=== PATIENT | female | born 1960 | race Caucasian/White ===

== ENCOUNTER 2020-07-12 16:30 | Outpatient (REF) | payer OTHER, SELFPAY ==
--- NOTE | 2020-07-12 16:38 | XR_ITS ---
EXAMINATION: XR HAND, LEFT CLINICAL INFORMATION: Finger pain COMPARISON: None TECHNIQUE: PA, lateral, and oblique views of the left hand. FINDINGS: Moderate degenerative changes are present at the base of the thumb with sclerosis and osteophyte formation. Degenerative changes are also present at the DIP joint of the second digit with capsular calcification and subchondral cyst formation . Otherwise, the bones and soft tissues are normal. No fracture. Alignment is anatomic. Joint spaces are maintained. No other erosions or soft tissue calcifications. XR/XR hand LT 2V IMPRESSION: Degenerative changes at the base of the thumb and at the second DIP joint. No fractures.
== END 2020-07-12 16:31 | disposition home or self-care (01) ==
LOC: HO.XRAY 16:30
PROVIDERS: PCP Internal Medicine; Visit Provider Physician Assistant
DX: M79.645 Pain in left finger(s) (principal)
CPT/HCPCS: 73120; 87086

== ENCOUNTER → 2020-08-08 14:14 | Outpatient (BNVA) | payer OTHER, SELFPAY | PROVIDERS: PCP Internal Medicine; Visit Provider Orthopaedic Surgery | DX: M18.12 Unilateral primary osteoarthritis of first carpometacarpal joint, left hand (principal) | CPT/HCPCS: 20600; J1020 ==

== ENCOUNTER 2020-08-22 16:12 | Outpatient (REF) | payer OTHER, SELFPAY ==
--- NOTE | 2020-08-22 16:16 | US_ITS ---
EXAMINATION: US PELVIS LIMITED (BLADDER) CLINICAL INFORMATION: Pyuria. COMPARISON: None. TECHNIQUE: Real-time imaging of the bladder. FINDINGS: BLADDER: Well distended and normal. The bladder is thin-walled, without mass, nodularity or echogenic contents. Bilateral ureteral jets are demonstrated. Prevoid bladder volume is 133 mL. Postvoid bladder volume is 6 mL. US/US bladder IMPRESSION: Unremarkable examination.
== END 2020-08-22 16:13 | disposition home or self-care (01) ==
LOC: HO.US 16:12
PROVIDERS: PCP Internal Medicine; Visit Provider Physician Assistant
DX: R82.81 Pyuria (principal); R82.90 Unspecified abnormal findings in urine
CPT/HCPCS: 76857

== ENCOUNTER 2020-09-06 19:14 | Outpatient (REF) | payer BC, SELFPAY ==
[2020-09-07 09:05] LABS: BV Int Neg Control Negative (Negative); BV Int Pos Control Positive (Positive)
== END 2020-09-06 19:15 | disposition home or self-care (01) ==
LOC: HO.LNP 19:14
PROVIDERS: Visit Provider Physician Assistant
DX: N76.0 Acute vaginitis (principal)
CPT/HCPCS: 87480; 87510; 87660

== ENCOUNTER → 2020-12-25 14:52 | Outpatient (BNVA) | payer OTHER, BC, SELFPAY | PROVIDERS: PCP Internal Medicine; Visit Provider Orthopaedic Surgery | DX: M18.12 Unilateral primary osteoarthritis of first carpometacarpal joint, left hand (principal) | CPT/HCPCS: 20600; J1020 ==

== ENCOUNTER 2021-04-11 16:03 | Outpatient (REF) | payer OTHER, SELFPAY ==
--- NOTE | ~2021-04-11 | XR_ITS ---
EXAMINATION: XR HIP, LEFT CLINICAL INFORMATION: Left lower quadrant pain. COMPARISON: None TECHNIQUE: AP view of the pelvis as well as AP and frog-leg lateral views of the left hip. FINDINGS: No acute fracture or dislocation. No significant joint space narrowing or marginal osteophytes. No osseous erosion. No abnormal soft tissue calcification. XR/XR hip LT w PEL1V IMPRESSION: Unremarkable examination.
== END 2021-04-11 16:04 | disposition home or self-care (01) ==
LOC: HO.XRAY 16:03
PROVIDERS: PCP Internal Medicine; Visit Provider Internal Medicine
DX: R10.32 Left lower quadrant pain (principal)
CPT/HCPCS: 73502

== ENCOUNTER 2022-06-18 12:36 | Emergency (ER) | payer OTHER, SELFPAY ==
--- NOTE | ~2022-06-18 | CT_ITS ---
EXAMINATION: CT HEAD WITHOUT CONTRAST CLINICAL INFORMATION: Headache. COMPARISON: None TECHNIQUE: Contiguous axial imaging was performed from the skull base to vertex without intravenous administration of contrast. Coronal and sagittal reformatted images were obtained. This CT examination was performed using dose optimization techniques as appropriate, variously including the following: *Automated exposure control *Adjustment of mA and/or kV according to patient size (this includes techniques or standardized protocols for targeted exams where dose is matched to indication/reason for exam; i.e. extremities or head) *Use of iterative reconstruction technique DLP: 650 mGy-cm FINDINGS: The cortical sulci are normal. The lateral ventricles are symmetrical. The third and fourth ventricles are in their normal midline position. The basilar and prepontine cisterns are unremarkable. There is no acute intra or extracerebral abnormality. There is no mass effect or midline shift. Sections through the bony calvarium are unremarkable. The paranasal sinuses are clear. The bony orbits and orbital contents are unremarkable. CT/CT head/brain wo IV con IMPRESSION: No acute intracranial pathology.
[2022-06-18 12:45] VITALS: BP 136/66; PULSE 80; RESP 18; TEMP 36.7; O2SAT 98; BMI 24.9
--- NOTE | 2022-06-18 13:08 | ED.GENADULT ---
HPI - General Adult General Chief complaint: Headache Stated complaint: Migraine Time Seen by Provider: 06/18/22 13:07 Source: patient Mode of arrival: ambulatory Limitations: no limitations History of Present Illness HPI narrative: The pt is a 61 yo female assigned at presenting w/ a one day of headache. She describes the pain as aching/pressure that starts at the base of her neck that radiates up the back of her head all the way to her forehead. She states that laying flat increases the pain and pressure in her head and neck. She reports that she has tried taking Tylenol with no relief of symptoms. She states that she is having pain behind her eyes but denies pain w/ eye movements. She endorses associated nausea but denies vomiting. She endorses sensitivity to both light and sound. She states that she had a diffuse rash on her arms and legs last night that has since disappeared. She also reports an episode of mild epistaxis this morning. She denies any recent illness symptoms including, fevers, chills, cough, SOB, or chest pain. She denies drug or alcohol use. Patient states that she has a history of migraines but hasn't had one in years. Onset (ago): day(s) (1) Location: head Radiation: neck Severity: mild Severity scale (1-10): 3 Quality: aching Pain Consistency: constant Relieving factors: none Exacerbating factors: other (laying flat) Associated symptoms: nausea/vomiting Treatments prior to arrival: other (Tylenol ) Related Data Home Medications Medication Instructions Recorded Confirmed cholecalciferol (vitamin D3) 25 25 mcg PO DAILY 07/12/20 07/16/21 mcg (1,000 unit) tablet Previous Rx's Medication Instructions Recorded levothyroxine 125 mcg tablet 125 mcg PO DAILY #90 tabs 12/30/21 azithromycin 250 mg tablet See Rx Instructions PO .COMPLEX #6 05/02/22 (Zithromax) tabs clindamycin 1.2 %-benzoyl 5 % See Rx Instructions topical 05/19/22 topical gel with emollient cream .COMPLEX #130 grams no.94 Allergies Allergy/AdvReac Type Severity Reaction Status Date / Time aspirin [ASA] Allergy Unknown FACIAL Verified 06/18/22 12:45 SWELLING ibuprofen [IBUPROFEN] Allergy Unknown HIVES Verified 06/18/22 12:45 Review of Systems Constitutional: Constitutional: Reports no additional constitutional complaints, Denies chills, Denies fever(s), Reports headache(s) and Denies night sweats Eyes: Eyes: Reports no additional eye complaints, Denies blurry vision, Denies change in vision, Denies diplopia, Denies eye discharge, Denies loss of vision and Denies eye pain ENT: Denies dizziness and Reports headache(s) Cardiovascular: Cardiovascular: Reports no additional cardiovascular complaints, Denies chest pain, Denies lightheadedness, Denies Loss of Consciousness and Denies dyspnea Respiratory: Respiratory: Reports no additional respiratory complaints and Denies dyspnea Gastrointestinal: Gastrointestinal: Reports no additional gastrointestinal complaints, Denies abdominal pain, Denies change in stool character, Reports nausea and Denies vomiting Musculoskeletal: Musculoskeletal: Reports no additional musculoskeletal complaints, Denies numbness and Denies tingling Neurologic: Reports Abnormal speech present, Denies dizziness, Reports headache(s), Denies loss of vision, Denies numbness and Denies tingling Psychiatric: Psychiatric: Reports no additional psychiatric complaints Endocrine: Endocrine: Reports no additional endocrine complaints Hematologic/Lymphatic: Hematologic/Lymphatic: Reports no additional hematologic/lymphatic complaints Allergic/Immunologic: Allergic/Immunologic: Reports no additional allergic/immunologic complaints [facility] [place] Past Medical History Attestation statement: The following information was validated with the patient. Source: old records reviewed Medical History Arthritis of carpometacarpal (CMC) joint of left thumb Gastrointestinal stromal tumor GERD (gastroesophageal reflux disease) Irritable bowel syndrome Migraine Vitiligo Surgical History History of cataract surgery History of total abdominal hysterectomy Family History Family History Father Diabetes Hypertension CVD (cardiovascular disease) Myocardial infarction Mother Hypertension Diabetes Brother Myocardial infarction Social History Social History Housing: House Alcohol intake: never Patient Tobacco Use Status: Never used Tobacco Smoked in Last 30 Days: No e-Cigarette/Vaping Use: Never Used Second Hand Smoke Exposure: No Any prior treatment program specific to substance use: No Advance Directives: No Advance Directives Information Provided: Yes Patient : No Current occupational status: employed Current occupation: lab employee / left hand Cognitive needs: No Hearing needs: No Vision needs: Yes Physical Exam ED Vital Signs: Vital Signs - 24 hr 06/18/22 12:45 06/18/22 13:27 06/18/22 15:23 Temperature 98.1 F 98.9 F 98.6 F Pulse Rate 80 77 71 Respiratory Rate 18 20 16 Blood Pressure 136/66 135/67 126/66 Pulse Oximetry 98 98 98 Oxygen Delivery Method Room Air Room Air Room Air 06/18/22 17:12 Temperature Pulse Rate Respiratory Rate 18 Blood Pressure Pulse Oximetry Oxygen Delivery Method BMI result Body Mass Index 24.9 Const General: healthy appearing Orientation/consciousness: patient oriented x3 Limitations: no limitations HENMT Head: Yes normal to inspection, Yes normocephalic and Yes atraumatic Ears: hearing grossly normal bilaterally General nose exam: Normal external nose present Eyes General: appearance normal, both eyes and all related structures Conjunctivae: conjunctivae normal Pupils: Equal, round and reactive pupils present EOM: EOMs intact bilaterally Neck Neck: Yes normal visual inspection, Yes full ROM, Yes no meningeal signs, No positive Brudzinski's sign, No positive Kernig's sign and Yes no JVD Resp Effort & Inspection: normal respiratory effort and able to speak in complete sentences Auscultation: clear to auscultation bilaterally Cardio Rate: regular rate Rhythm: regular rhythm Heart sounds: S1 normal heart sound present and S2 normal heart sound present Peripheral pulses: Peripheral pulses 2+ throughout Back/Spine/Pelvis Cervical Spine: cervical ROM normal Skin General skin exam: no rashes or lesions noted Neuro General: patient oriented x3 and no meningeal signs Cranial nerves: Yes Equal, round and reactive pupils present, Yes Bilaterally intact EOM present and Yes Nystagmus not present Cognition (Neuro): normal cognition Speech: Abnormal speech present Gait exam (Neuro): Normal gait present Motor exam (neuro): 5/5 motor strength present throughout Coordination: [id number] test normal Romberg Test: Negative Medications Administered Discontinued Medications Generic Name Dose Route Start Last Admin Trade Name Freq PRN Reason Stop Dose Admin Acetaminophen/Butalbital/Caffeine 1 tab 06/18/22 14:25 06/18/22 14:37 Butalb/Acetamin/Caff 50/325/40 Tablet PO 06/18/22 14:26 1 tab ONCE ONE Administration Diphenhydramine HCl 50 mg 11/23/22 16:38 06/18/22 17:12 Diphenhydramine Hcl 50 Mg/Ml Vial IVPUSH 06/18/22 16:39 50 mg ONCE ONE Administration Sodium Chloride 1,000 mls @ 999 mls/hr 06/18/22 16:45 06/18/22 17:20 Ns IV 06/18/22 17:45 999 mls/hr .Q1H1M ROSARIO Administration Morphine Sulfate 4 mg 06/18/22 16:38 06/18/22 17:12 Morphine Sulfate 4 Mg/Ml Cartridge IVPUSH 06/18/22 16:39 4 mg ONCE ONE Administration Protocol Ondansetron HCl 4 mg 06/18/22 16:38 06/18/22 17:13 Ondansetron Hcl 4 Mg/2 Ml Vial IVPUSH 06/18/22 16:39 4 mg ONCE ONE Administration Medical Decision Making MDM Narrative Medical decision making narrative: Patient is a 61 year old assigned female at with a history of migraines presenting to the emergency department today with a headache and nausea. Patient's physical exam was unremarkable including a normal neurological examination, no meningeal signs, and no rash. Patient's blood work was unremarkable. Patient's head CT showed no acute process. I explained my physical exam findings as well as all test results to the patient. I answered all questions asked by the patient. I discussed the potential of performing a lumbar puncture with the patient to definitively rule out meningitis. The patient stated that she would not like that procedure done. My suspicion for meningitis is low and her clinical presentation is reassuring. Patient unable to be given Toradol secondary to ASA and NSAID allergy. Patient received PO Fioricet, IV Benadryl, IV Morphine, IV Zofran, and IV fluids which she stated helped her symptoms significantly. I stressed the importance of the patient taking her medication as prescribed. I stressed the importance of the patient following up with her primary care provider and a neurologist. I stressed the importance of the patient returning to the emergency department immediately if her symptoms were to worsen or if she were to develop any dizziness, shortness of breath, difficulty breathing, chest pain, blurry vision, loss of vision, nausea, vomiting, abdominal pain, fever, chills, back pain, or any other complaints. Patient verbalized agreement and understanding with this treatment plan and discharge. Medical Records Medical records reviewed: Yes I reviewed the patient's medical records. Lab Data Lab results reviewed: Yes I reviewed the patient's lab results. Result diagrams: 06/18/22 14:27 06/18/22 14:27 Labs: Lab Results 06/18/22 06/18/22 06/18/22 Range/Units 14:27 14:27 14:27 WBC 4.6 L (4.8-10.8) X10*3/uL RBC 4.18 L (4.20-5.50) X10*6/uL Hgb 11.7 L (12.0-16.0) g/dl Hct 36.0 L (37.0-47.0) % MCV 86.1 (80.0-98.0) fL MCH 28.0 (27.0-33.0) pg MCHC 32.5 (31.0-35.0) g/dl RDW 13.3 (11.0-16.0) % Plt Count 201 (160-400) X10*3/uL MPV 9.7 (9.4-12.3) fL Immature Gran % (Auto) 0.2 (0.0-0.4) % Neut % (Auto) 74.5 H (45-73) % Lymph % (Auto) 15.9 L (20-40) % Dawson % (Auto) 9.2 (2-11) % Eos % (Auto) 0.0 (0-4) % Baso % (Auto) 0.2 (0-2) % Lymph # (Auto) 0.7 L (1.2-4.9) X10*3/uL Dawson # (Auto) 0.4 (0.1-1.2) X10*3/uL Eos # (Auto) 0.0 (0.0-0.4) X10*3/uL Baso # (Auto) 0.0 (0.0-0.2) X10*3/uL Abs Immat Gran (auto) 0.01 (0.00-0.03) X10*3/uL Absolute Neuts (auto) 3.4 (2.0-8.3) x10*3/uL Absolute Nucleated RBC 0.000 (0.0-0.012) X10*3/uL Nucleated RBC % (auto) 0.0 (0.0-0.2) /100WBC ESR 34 H (0-20) MM/HR Sodium 142 (135-145) mmol/L Potassium 3.6 (3.3-5.1) mmol/L Chloride 105 (96-108) mmol/L Carbon Dioxide 24 (22-29) mmol/L Anion Gap 17 (12-20) BUN 11 (9-16) mg/dL Creatinine 0.63 (0.5-1.4) mg/dL Estim Creat Clear Calc 89.7 Estimated GFR > 60 Random Glucose 104 (60-115) mg/dL Calcium 9.7 (8.4-10.2) mg/dL Total Bilirubin 0.6 (0.0-1.0) mg/dL AST 26 (5-31) U/L ALT 27 (0-31) U/L Alkaline Phosphatase 75 (39-117) U/L C-Reactive Protein 0.85 H (< or = 0.50) mg/dL Total Protein 7.5 (6.5-8.0) g/dL Albumin 4.6 (3.5-5.0) g/dL Influenza Type A (PCR) (Negative) Influenza Type B (PCR) (Negative) RSV RNA Qual (PCR) (Negative) SARS-CoV-2 RNA (RT-PCR) (Negative) 06/18/22 Range/Units 15:21 WBC (4.8-10.8) X10*3/uL RBC (4.20-5.50) X10*6/uL Hgb (12.0-16.0) g/dl Hct (37.0-47.0) % MCV (80.0-98.0) fL MCH (27.0-33.0) pg MCHC (31.0-35.0) g/dl RDW (11.0-16.0) % Plt Count (160-400) X10*3/uL MPV (9.4-12.3) fL Immature Gran % (Auto) (0.0-0.4) % Neut % (Auto) (45-73) % Lymph % (Auto) (20-40) % Dawson % (Auto) (2-11) % Eos % (Auto) (0-4) % Baso % (Auto) (0-2) % Lymph # (Auto) (1.2-4.9) X10*3/uL Dawson # (Auto) (0.1-1.2) X10*3/uL Eos # (Auto) (0.0-0.4) X10*3/uL Baso # (Auto) (0.0-0.2) X10*3/uL Abs Immat Gran (auto) (0.00-0.03) X10*3/uL Absolute Neuts (auto) (2.0-8.3) x10*3/uL Absolute Nucleated RBC (0.0-0.012) X10*3/uL Nucleated RBC % (auto) (0.0-0.2) /100WBC ESR (0-20) MM/HR Sodium (135-145) mmol/L Potassium (3.3-5.1) mmol/L Chloride (96-108) mmol/L Carbon Dioxide (22-29) mmol/L Anion Gap (12-20) BUN (9-16) mg/dL Creatinine (0.5-1.4) mg/dL Estim Creat Clear Calc Estimated GFR Random Glucose (60-115) mg/dL Calcium (8.4-10.2) mg/dL Total Bilirubin (0.0-1.0) mg/dL AST (5-31) U/L ALT (0-31) U/L Alkaline Phosphatase (39-117) U/L C-Reactive Protein (< or = 0.50) mg/dL Total Protein (6.5-8.0) g/dL Albumin (3.5-5.0) g/dL Influenza Type A (PCR) NEGATIVE (Negative) Influenza Type B (PCR) NEGATIVE (Negative) RSV RNA Qual (PCR) NEGATIVE (Negative) SARS-CoV-2 RNA (RT-PCR) NEGATIVE (Negative) Imaging Data CT scan - head: Attestation: I personally reviewed and interpreted this imaging study as follows: My impression: No acute process. Radiologist's impression: EXAMINATION: CT HEAD WITHOUT CONTRAST CLINICAL INFORMATION: Headache.? COMPARISON: None TECHNIQUE: Contiguous axial imaging was performed from the skull base to vertex without intravenous administration of contrast. Coronal and sagittal reformatted images were obtained. This CT examination was performed using dose optimization techniques as appropriate, variously including the following: *Automated exposure control *Adjustment of mA and/or kV according to patient size (this includes techniques or standardized protocols for targeted exams where dose is matched to indication/reason for exam; i.e. extremities or head) *Use of iterative reconstruction technique DLP: 650 mGy-cm FINDINGS: The cortical sulci are normal. The lateral ventricles are symmetrical. The third and fourth ventricles are in their normal midline position. The basilar and prepontine cisterns are unremarkable. There is no acute intra or extracerebral abnormality. There is no mass effect or midline shift. Sections through the bony calvarium are unremarkable. The paranasal sinuses are clear. The bony orbits and orbital contents are unremarkable. CT/CT head/brain wo IV con IMPRESSION: No acute intracranial pathology. Dictated By: Jose Guzman MD Signed By: Electronically signed by Jose Guzman MD 06/18/22 [id number] Discharge Plan Discharge Clinical Impression: Migraine Patient Disposition: Home, Self-Care Instructions: Migraine Headache (ED) Additional Instructions: Follow up with your primary care provider and a neurologist. Return to the emergency department immediately if your symptoms worsen or if you develop any dizziness, shortness of breath, difficulty breathing, chest pain, blurry vision, loss of vision, nausea, vomiting, abdominal pain, fever, chills, back pain, or any other complaints. Prescriptions: No Action levothyroxine 125 mcg tablet 125 mcg PO DAILY Qty: 90 1RF [id number] 1.2-5 % combo pack,cream and gel See Rx Instructions topical .COMPLEX Qty: 130 0RF Rx Instructions: Apply twice a day topical; cholecalciferol (vitamin D3) 25 mcg (1,000 unit) tablet 25 mcg PO DAILY azithromycin [Zithromax] 250 mg tablet See Rx Instructions PO .COMPLEX Qty: 6 0RF Rx Instructions: For 250 mg dose pack: take 500 mg today (day 1), then 250 mg for 4 days (days 2-5) PO Referrals: [facility] [place] Neuro/Sleep [Provider Group] (Call to establish and follow up with a neurologist. ) Po,Paul Miranda MD [Primary Care Provider] - Stand Alone Forms: Work/School Release Print Language: Vincentian
[2022-06-18 13:27] VITALS: BP 135/67; PULSE 77; RESP 20; TEMP 37.2; O2SAT 98
[2022-06-18 14:31] LABS: MANUAL DIFF FLAG NO
[2022-06-18 14:34] LABS: Basophils Percent Auto 0.2 % (0-2); Hemoglobin 11.7 g/dl (12.0-16.0); Imm Gran Abs Auto 0.01 X10*3/uL (0.00-0.03); Imm Gran Pct Auto 0.2 % (0.0-0.4); Lymphocytes Absolute Auto 0.7 X10*3/uL (1.2-4.9); Lymphocytes Percent Auto 15.9 % (20-40); Mean Corpuscular HGB Conc 32.5 g/dl (31.0-35.0); Mean Corpuscular Volume 86.1 fL (80.0-98.0); Mean Platelet Volume 9.7 fL (9.4-12.3); Monocytes Absolute Auto 0.4 X10*3/uL (0.1-1.2); Monocytes Percent Auto 9.2 % (2-11); Neutrophils Absolute Auto 3.4 x10*3/uL (2.0-8.3); Neutrophils Percent Auto 74.5 % (45-73); Platelet Count 201 X10*3/uL (160-400); Red Blood Count 4.18 X10*6/uL (4.20-5.50); Red Cell Distribution Width 13.3 % (11.0-16.0); White Blood Count 4.6 X10*3/uL (4.8-10.8)
[2022-06-18] MEDS: Butalb/Acetamin/Caff 50/325/40 TABLET 1 TAB PO (14:37)
--- NOTE | 2022-06-18 14:38 | PC.NURSE ---
patient a&ox3, c/o 03/05 headache, labs drawn, family at bedside, call white within reach, will continue to monitor
[2022-06-18 14:50] LABS: Alanine Aminotransferase 27 U/L (0-31); Albumin Level 4.6 g/dL (3.5-5.0); Alkaline Phosphatase 75 U/L (39-117); Anion Gap 17 (12-20); Aspartate Amino Transferase 26 U/L (5-31); Bilirubin Total 0.6 mg/dL (0.0-1.0); Blood Urea Nitrogen 11 mg/dL (9-16); C Reactive Protein 0.85 mg/dL (< or = 0.50); Calcium 9.7 mg/dL (8.4-10.2); Carbon Dioxide 24 mmol/L (22-29); Chloride 105 mmol/L (96-108); Creatinine Clr Calc Pharmacy 89.7; Estimated Glomerular Filt Rate > 60; Glucose Random 104 mg/dL (60-115); Potassium 3.6 mmol/L (3.3-5.1); Sodium 142 mmol/L (135-145); Total Protein 7.5 g/dL (6.5-8.0)
[2022-06-18 15:20] LABS: Erythrocyte Sedimentation Rate 34 MM/HR (0-20)
[2022-06-18 15:23] VITALS: BP 126/66; PULSE 71; RESP 16; TEMP 37; O2SAT 98
[2022-06-18 16:10] LABS: Influenza A PCR NEGATIVE (Negative); Influenza B PCR NEGATIVE (Negative); Resp Syncy Virus RNA Qual PCR NEGATIVE (Negative); SARS COV2 PCR INHOUSE NEGATIVE (Negative)
[2022-06-18 17:12] VITALS: RESP 18
[2022-06-18] MEDS: diphenhydrAMINE HCL 50 MG/ML VIAL IVPUSH (17:12)
[2022-06-18] MEDS: Morphine Sulfate 4 MG/ML CARTRIDGE IVPUSH (17:12)
[2022-06-18] MEDS: ondansetron HCL 4 MG/2 ML VIAL IVPUSH (17:13)
[2022-06-18] MEDS: 0.9 % Sodium Chloride 1,000 ML 999 ML IV (17:20)
== END 2022-06-18 19:09 | disposition home or self-care (01) ==
PROVIDERS: Physician Assistant Medical; Emergency Provider Emergency Medicine; PCP Internal Medicine
DX: G43.909 Migraine, unspecified, not intractable, without status migrainosus (principal); R11.2 Nausea with vomiting, unspecified; Z20.822 Contact with and (suspected) exposure to COVID-19; Z79.899 Other long term (current) drug therapy
CPT/HCPCS: 0241U; 36415; 70450; 80053; 85025; 85652; 86140; 96361; 96374; 96375; 99284; J1200; J2270; J2405

== ENCOUNTER → 2022-08-04 14:00 | Outpatient (BNVA) | payer OTHER, SELFPAY | PROVIDERS: PCP Internal Medicine; Visit Provider Physician Assistant | DX: M77.11 Lateral epicondylitis, right elbow (principal) | CPT/HCPCS: 20550; J1020 ==

== ENCOUNTER 2023-09-04 14:50 | Outpatient (AMB) | payer OTHER, SELFPAY ==
[2023-09-04 15:04] VITALS: BP 138/76; PULSE 95; O2SAT 99; BMI 25.8
--- NOTE | 2023-09-04 15:04 | MHC.PC.OV ---
Vital Signs 09/04/23 15:04 Height 5 ft 4 in Weight 150 lb 4 oz BMI 25.8 BP 138/76 Blood Pressure Location Lt brachial Position Sitting Pulse 95 Pulse Source Pulse Oximeter Pulse Oximetry (%) 99 Oxygen Delivery Method Room Air Intake Visit Reasons: Annual exam Intake Note: Patient is here today for a physical. 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 Accompanied by: Self / Same As Patient Allergies aspirin [ASA] Allergy (Unknown, Verified 09/04/23 15:04) FACIAL SWELLING ibuprofen [IBUPROFEN] Allergy (Unknown, Verified 09/04/23 15:04) HIVES Medication List - Last Reconciled 09/04/23 by Paul Ace MD cholecalciferol (vitamin D3) 25 mcg PO DAILY [id number] 1.2-5 % Apply twice a day topical; levothyroxine 150 mcg PO DAILY 90 days phenazopyridine (Pyridium) 100 mg PO TID PRN 10 days sumatriptan succinate (Imitrex) 50 mg orally once a day PRN; Tobacco use date assessed: 09/04/23 Dental Screening Dental Screen Date: 09/04/23 Did you have a dental visit in the last 12 months?: Yes Did you have a dental problem in the last 6 months where you did not have access to dental care?: No Was dental information given to patient?: Patient has dentist HPI Annual exam HPI Details 62-year-old female with a history of hypothyroidism, gastrointestinal stromal tumor GERD coming in for physical exam last seen in November 2022. Patient's colonoscopy is up-to-date April 2022 mammogram is due this month. Blood work done August 2023 showing normal B12 normal sugar normal kidney function electrolytes liver function test normal folic acid good cholesterol LDL goal of 135 thyroid is normal no anemia patient also followed up with the surgeon resection of the stromal tumor stomach January 2021 has been advised to get CT scan of the abdomen pelvis with IV and oral contrast for surveillance Dr. Wilson. Patient also follows up with urology November 2022 for microscopic hematuria placed on d mannose whcich helpeed but feels nausea [facility] Medical History Arthritis of carpometacarpal (CMC) joint of left thumb Gastrointestinal stromal tumor GERD (gastroesophageal reflux disease) Irritable bowel syndrome Migraine Vitiligo Surgical History History of cataract surgery History of total abdominal hysterectomy Family History Father Diabetes Hypertension CVD (cardiovascular disease) Myocardial infarction Mother Hypertension Diabetes Brother Myocardial infarction Social History Housing: House Alcohol intake: never Patient Tobacco Use Status: Never used Tobacco e-Cigarette/Vaping Use: Never Used Second Hand Smoke Exposure: No Current occupational status: employed Current occupation: lab employee / left hand Cognitive needs: No Hearing needs: No Vision needs: Yes Questionnaire PHQ-9 Over the last 2 weeks, how often have you been bothered by any of the following problems? 1. Little interest or pleasure in doing things: not at all 2. Feeling down, depressed, or hopeless: not at all 3. Trouble falling or staying asleep, or sleeping too much: not at all 4. Feeling tired or having little energy: not at all 5. Poor appetite or overeating: not at all 6. Feeling bad about yourself - or that you are a failure or have let yourself or your family down: not at all 7. Trouble concentrating on things, such as reading the newspaper or watching television: not at all 8. Moving or speaking so slowly that other people could have noticed. Or the opposite - being so fidgety or restless that you have been moving around a lot more than usual: not at all 9. Thoughts that you would be better off or of hurting yourself in some way: not at all Total score: 0 Depression Screening Interpretation: Negative Depression Screening Done: Yes 77889 - PHQ-9 Billing: Yes Source: Developed by Drs. Eduardo Alberto, Pau Epps, Cosme Velasco and colleagues, with an educational anneliese from [employer]. Thrive Questionnaire Date Thrive assessed: 09/04/23 I am a: Patient What is your living situation today?: I have a steady place to live Within the past 12 months, did the food you bought not last and you didn't have the money to get more?: Never true Within the past 12 months, did you worry whether your food would run out before you got money to buy more?: Never true Do you have trouble paying for medicines?: No Do you have trouble getting transportation to medical appointments?: No Do you have trouble paying your heating and electricity bill?: No Do you have trouble taking care of your child, family member or friend?: No Do you have trouble with day-to-day activities such as bathing, preparing meals, shopping, managing finances, etc.?: No Are you currently unemployed and looking for a job?: No Are you interested in more education?: No Please select the resources that you would like help with: None Currently or been in a relationship where the following occur: no concerns reported THRIVE Score: 0 AUDIT C Alcohol Use Questionnaire (AUDIT-C) 1. How often do you have a drink containing alcohol?: Monthly or less 2. How many drinks containing alcohol do you have on a typical day when you are drinking?: 1 or 2 3. How often do you have six or more drinks on one occasion?: Never Total Score: 1 Score Reviewed/Action Taken: No GERARD-7 AMB Questionnaire GERARD-7 Date GERARD - 7 assessed: 09/04/23 Feeling nervous, anxious, or on edge: 0 = Not at all Not being able to stop or control worryin = Not at all Worrying too much about different things: 0 = Not at all Trouble relaxin = Not at all Being so restless that it is hard to sit still: 0 = Not at all Becoming easily annoyed or irritable: 0 = Not at all Feeling afraid as if something awful might happen: 0 = Not at all Total GERARD-7 score (0-4 normal; 5-9 mild; 10-14 moderate; 15-21 severe): 0 Source: Developed by Drs. Eduardo Alberto, Pau Epps, Cosme Velasco and colleagues, with an educational anneliese from [employer]. GERARD-7 Assessment Billing GERARD-7 Assessment Tool: GERARD-7 Assessment 07000 Review of Systems Const Denies poor appetite and Denies weakness Eyes Denies no additional complaints ENT Reports Normal hearing present, Denies dizziness, Denies nasal congestion, Denies tinnitus and Denies sore throat Card Denies chest pain, Denies syncope, Denies rapid heart rate and Denies dyspnea Resp Denies cough and Denies dyspnea GI Denies change in stool character, Reports constipation, Denies diarrhea, Denies nausea and Denies vomiting Denies urinary frequency, Denies difficulty voiding and Denies dysuria Neuro Reports Normal hearing present, Denies confusion, Denies dizziness, Denies syncope and Denies weakness Psych Denies confusion Physical exam (Primary Care) Vital Signs: Last Vital Signs Pulse 95 09/04/23 15:04 BP 138/76 09/04/23 15:04 Pulse Ox 99 09/04/23 15:04 Oxygen Delivery Method Room Air 09/04/23 15:04 BMI result Body Mass Index 25.8 Tobacco/Smoking Status: Tobacco use Status Tobacco use date assessed 09/04/23 09/04/23 15:04 Patient Tobacco Use Status Never used Tobacco 09/04/23 15:04 e-Cigarette/Vaping Use Never Used 09/04/23 15:04 PHQ-9: PHQ-9 Score PHQ-9: Total score 0 09/04/23 15:13 Depression Screening Interpretation: Negative Thrive Assessment: Date of Thrive Assessment Date Thrive assessed 09/04/23 09/04/23 15:13 Currently or been in a relationship where the following occur: no concerns reported Const General: No confusion Orientation/consciousness: No confusion HENMT Head: Yes normocephalic Ears: external ears normal and TM's normal bilaterally Face and sinus: Yes normal facial exam Mouth: moist mucous membranes Throat: Yes tonsils normal Eyes Conjunctivae: conjunctivae normal Pupils: Equal, round and reactive pupils present and Pupil accommodation reflex normal Direct Ophthalmoscopy: normal light reflex Neck Neck: No lymphadenopathy Thyroid: Thyroid normal Chest Chest palpation & inspection: normal inspection of the chest Resp Effort & Inspection: normal respiratory effort and no audible wheezes Auscultation: clear to auscultation bilaterally, no crackles, no wheezes and lung sounds not diminished Cardio Rate: regular rate Rhythm: regular rhythm Peripheral pulses: radial pulses present and dorsalis pedis present GI Palpation (GI): no masses Auscultation: normal bowel sounds and normoactive bowel sounds Rectal Exam - Female: deferred Skin General skin exam: no rashes or lesions noted Rashes: no rashes Neuro General: No confusion Cranial nerves: Yes Equal, round and reactive pupils present and Yes Normal hearing present Cognition (Neuro): normal cognition Gait exam (Neuro): Normal gait present Motor exam (neuro): 5/5 motor strength present throughout Deep tendon reflexes (DTR's): Right brachioradialis reflex intensity grade: 2+, Left brachioradialis reflex intensity grade: 2+, Right patellar reflex intensity grade: 2+ and Left patellar reflex intensity grade: 2+ Extrem General: No edema Assessment and Plan Assessment & Plan (1) Annual physical exam: Code(s): Z00.00 - Encounter for general adult medical examination without abnormal findings (2) Gastrointestinal stromal tumor: Comment: November 2020, resection by Dr. Lorenz 01/2021 Code(s): C49.A0 - Gastrointestinal stromal tumor, unspecified site Plan: Patient follows up with the surgeon and has been advised to do a CT scan (3) Hypothyroidism: Code(s): E03.9 - Hypothyroidism, unspecified Qualifiers: Hypothyroidism type: acquired Qualified Code(s): E03.9 - Hypothyroidism, unspecified Plan: Continue with thyroid medication (4) UTI (urinary tract infection): Code(s): N39.0 - Urinary tract infection, site not specified Plan: [facility]oding Level of Care Code Est Pt Prev Care 40-64y(41134) Diagnoses Annual physical exam Z00.00 Gastrointestinal stromal tumor C49.A0 Acquired hypothyroidism E03.9 Hypothyroidism type: acquired UTI (urinary tract infection) N39.0 Additional Codes GERARD-7 Assessment Billing - GERARD-7 Assessment Tool: GERARD-7 Assessment 43369 ([id number])
== END 2023-09-04 15:38 | disposition home or self-care (01) ==
PROVIDERS: Visit Provider Internal Medicine
DX: Z00.00 Encounter for general adult medical examination without abnormal findings (principal); C49.A0 Gastrointestinal stromal tumor, unspecified site; E03.9 Hypothyroidism, unspecified; N39.0 Urinary tract infection, site not specified
CPT/HCPCS: 99396

== ENCOUNTER 2023-11-03 16:14 | Outpatient (AMB) | payer OTHER, SELFPAY ==
--- NOTE | 2023-11-03 16:14 | MHC.PC.OV ---
Intake Visit Reasons: Cough, congested Allergies aspirin [ASA] Allergy (Unknown, Verified 09/04/23 15:04) FACIAL SWELLING ibuprofen [IBUPROFEN] Allergy (Unknown, Verified 09/04/23 15:04) HIVES Tobacco use date assessed: 09/04/23 Dental Screening Dental Screen Date: 09/04/23 HPI Cough, congested HPI Details 62-year-old female with a history of gastrointestinal stromal tumor hypothyroidism coming in through Telehealth for an acute problem. Patient was last seen in August 2023.sick 1 month ago had a cough - better for only 2 days congested, no fevers, has chills. productive , , no sob, no sore throat. deny allergy problem - took flonase and no help [facility] Medical History Arthritis of carpometacarpal (CMC) joint of left thumb Gastrointestinal stromal tumor GERD (gastroesophageal reflux disease) Irritable bowel syndrome Migraine Vitiligo Surgical History History of cataract surgery History of total abdominal hysterectomy Family History Father Diabetes Hypertension CVD (cardiovascular disease) Myocardial infarction Mother Hypertension Diabetes Brother Myocardial infarction Social History Housing: House Alcohol intake: never Patient Tobacco Use Status: Never used Tobacco e-Cigarette/Vaping Use: Never Used Second Hand Smoke Exposure: No Current occupational status: employed Current occupation: lab employee / left hand Cognitive needs: No Hearing needs: No Vision needs: Yes Questionnaire Thrive Questionnaire Date Thrive assessed: 11/03/23 I am a: Patient What is your living situation today?: I have a steady place to live Within the past 12 months, did the food you bought not last and you didn't have the money to get more?: Never true Within the past 12 months, did you worry whether your food would run out before you got money to buy more?: Never true Do you have trouble paying for medicines?: No Do you have trouble getting transportation to medical appointments?: No Do you have trouble paying your heating and electricity bill?: No Do you have trouble taking care of your child, family member or friend?: No Do you have trouble with day-to-day activities such as bathing, preparing meals, shopping, managing finances, etc.?: No Are you currently unemployed and looking for a job?: No Are you interested in more education?: No Please select the resources that you would like help with: None Currently or been in a relationship where the following occur: no concerns reported THRIVE Score: 0 AUDIT C Alcohol Use Questionnaire (AUDIT-C) 1. How often do you have a drink containing alcohol?: Monthly or less 2. How many drinks containing alcohol do you have on a typical day when you are drinking?: 1 or 2 3. How often do you have six or more drinks on one occasion?: Never Total Score: 1 Score Reviewed/Action Taken: No GERARD-7 AMB Questionnaire GERARD-7 Date GERARD - 7 assessed: 09/04/23 Source: Developed by Drs. Eduardo Alberto, Pau Epps, Cosme Velasco and colleagues, with an educational anneliese from [employer]. Physical exam (Primary Care) Tobacco/Smoking Status: Tobacco use Status Tobacco use date assessed 09/04/23 11/03/23 16:15 Patient Tobacco Use Status Never used Tobacco 11/03/23 16:15 e-Cigarette/Vaping Use Never Used 11/03/23 16:15 Thrive Assessment: Date of Thrive Assessment Date Thrive assessed 11/03/23 11/03/23 16:15 Currently or been in a relationship where the following occur: no concerns reported Telehealth Telehealth Location of provider rendering services: practice address Location of patient: address on file Patient Identification confirmed using: Name, : Yes Telehealth method: voice only (android ) Patient verbally consented to treatment: Yes Patient verbally consented to billing insurance company: Yes Patient informed of any privacy concerns related to visit: Yes Minutes spent on Phone/Video with Pt.: 15 Assessment and Plan Assessment & Plan (1) Sinus congestion: Code(s): R09.81 - Nasal congestion Plan: Discussed that we will get the patient some antibiotic to treat for sinusitis but if it persistent will have to see the patient in the office. Medications: New azithromycin (Zithromax) For 250 mg dose pack: take 500 mg today (day 1), then 250 mg for 4 days (days 2-5) PO 6 tabs 0RF R09.81 - Nasal congestion Coding Level of Care Code Tele Est Pt Level 3 (90110) Diagnoses Sinus congestion R09.81
== END 2023-11-03 17:19 | disposition home or self-care (01) ==
LOC: HO.HMGH 16:14
PROVIDERS: PCP Internal Medicine; Visit Provider Internal Medicine
DX: R09.81 Nasal congestion (principal)
CPT/HCPCS: 99213

== ENCOUNTER 2024-02-04 16:38 | Outpatient (AMB) | payer OTHER, SELFPAY ==
--- NOTE | 2024-02-04 16:38 | A.OFFPC_ITS ---
Intake Visit Reasons: Thyroid Allergies aspirin [ASA] Allergy (Unknown, Verified 02/04/24 16:39) FACIAL SWELLING ibuprofen [IBUPROFEN] Allergy (Unknown, Verified 02/04/24 16:39) HIVES Medication List - Last Reconciled 02/04/24 by Paul Ace MD cholecalciferol (vitamin D3) 25 mcg PO DAILY [id number]-[id number] cmb94 1.2-5 % Apply twice a day topical; levothyroxine 125 mcg PO DAILY 90 days sumatriptan succinate (Imitrex) 50 mg orally once a day PRN; Tobacco use date assessed: 09/04/23 Dental Screening Dental Screen Date: 09/04/23 HPI Thyroid HPI Details 63-year-old female with hypothyroidism G ERD gastrointestinal stromal tumor, migraines calling in through Telehealth for hypothyroidism patient was last seen in 10/2023 for sinus congestion. Patient is on levothyroxine 150 mcg and has been having GI symptoms. Thyroid test have been in the normal range . With all the GI symptoms patient tried the lower dose thyroid medication and felt better. Patient is for follow-up this time left message on the phone for 16:58 [facility] Medical History Arthritis of carpometacarpal (CMC) joint of left thumb Gastrointestinal stromal tumor GERD (gastroesophageal reflux disease) Irritable bowel syndrome Migraine Vitiligo Surgical History History of cataract surgery History of total abdominal hysterectomy Family History Father Diabetes Hypertension CVD (cardiovascular disease) Myocardial infarction Mother Hypertension Diabetes Brother Myocardial infarction Social History Housing: House Alcohol intake: never Patient Tobacco Use Status: Never used Tobacco e-Cigarette/Vaping Use: Never Used Second Hand Smoke Exposure: No Current occupational status: employed Current occupation: lab employee / left hand Cognitive needs: No Hearing needs: No Vision needs: Yes Questionnaire PHQ-9 Over the last 2 weeks, how often have you been bothered by any of the following problems? 1. Little interest or pleasure in doing things: not at all 2. Feeling down, depressed, or hopeless: not at all 3. Trouble falling or staying asleep, or sleeping too much: not at all 4. Feeling tired or having little energy: not at all 5. Poor appetite or overeating: not at all 6. Feeling bad about yourself - or that you are a failure or have let yourself or your family down: not at all 7. Trouble concentrating on things, such as reading the newspaper or watching television: not at all 8. Moving or speaking so slowly that other people could have noticed. Or the opposite - being so fidgety or restless that you have been moving around a lot more than usual: not at all 9. Thoughts that you would be better off or of hurting yourself in some way: not at all Total score: 0 Depression Screening Interpretation: Negative Depression Screening Done: Yes 28117 - PHQ-9 Billing: Yes Source: Developed by Drs. Eduardo Alberto, Pau Epps, Cosme Velasco and colleagues, with an educational anneliese from [employer]. Thrive Questionnaire Date Thrive assessed: 11/03/23 AUDIT C Alcohol Use Questionnaire (AUDIT-C) 1. How often do you have a drink containing alcohol?: Monthly or less 2. How many drinks containing alcohol do you have on a typical day when you are drinking?: 1 or 2 3. How often do you have six or more drinks on one occasion?: Never Total Score: 1 Score Reviewed/Action Taken: No GERARD-7 AMB Questionnaire GERARD-7 Date GERARD - 7 assessed: 09/04/23 Source: Developed by Drs. Eduardo Alberto, Pau Epps, Cosme Velasco and colleagues, with an educational anneliese from [employer]. Physical exam (Primary Care) Tobacco/Smoking Status: Tobacco use Status Tobacco use date assessed 09/04/23 02/04/24 16:40 Patient Tobacco Use Status Never used Tobacco 02/04/24 16:40 e-Cigarette/Vaping Use Never Used 02/04/24 16:40 PHQ-9: PHQ-9 Score PHQ-9: Total score 0 02/04/24 16:40 Depression Screening Interpretation: Negative Thrive Assessment: Date of Thrive Assessment Date Thrive assessed 11/03/23 02/04/24 16:40 Telehealth Telehealth Location of provider rendering services: practice address Location of patient: address on file Patient Identification confirmed using: Name, : Yes Telehealth method: voice only (android ) Patient verbally consented to treatment: Yes Patient verbally consented to billing insurance company: Yes Patient informed of any privacy concerns related to visit: Yes Minutes spent on Phone/Video with Pt.: 15 Assessment and Plan Assessment & Plan (1) Hypothyroidism: Code(s): E03.9 - Hypothyroidism, unspecified Qualifiers: Hypothyroidism type: acquired Qualified Code(s): E03.9 - Hypothyroidism, unspecified Plan: Advised retesting and can go on the lower dosage. Retesting to be done in 6 weeks. Did explain to the patient the different by availability of generic compared to brand name. Presently will do generic and retest blood work. Orders: Orders Thyroid Stimulating Hormone Today E03.9 - Hypothyroidism, unspecified Free T4 (Free Thyroxine) Today E03.9 - Hypothyroidism, unspecified Medications: Changed From levothyroxine 150 mcg PO DAILY 90 days 90 tabs 1RF E03.9 - Hypothyroidism, unspecified To levothyroxine 125 mcg PO DAILY 90 days 90 tabs 1RF E03.9 - Hypothyroidism, unspecified Coding Level of Care Code Tele Est Pt Level 3 (53228) Diagnoses Acquired hypothyroidism E03.9 Hypothyroidism type: acquired
== END 2024-02-04 17:08 | disposition home or self-care (01) ==
LOC: HO.HMGH 16:38
PROVIDERS: PCP Internal Medicine; Visit Provider Internal Medicine
DX: E03.9 Hypothyroidism, unspecified (principal)
CPT/HCPCS: 99213

== ENCOUNTER 2024-12-16 16:03 | Outpatient (AMB) | payer OTHER, SELFPAY ==
[2024-12-16 16:39] VITALS: BP 144/80; PULSE 80; TEMP 36.1; O2SAT 97; BMI 25.8
--- NOTE | 2024-12-16 16:39 | MHC.PC.OV ---
Vital Signs 12/16/24 16:39 Height 5 ft 4 in Weight 150 lb 6 oz BMI 25.8 BP 144/80 H Blood Pressure Location Lt brachial Position Sitting Pulse 80 Pulse Source Pulse Oximeter Temp 97.0 F Temp Source Temporal Artery Scan Pulse Oximetry (%) 97 Oxygen Delivery Method Room Air Intake Visit Reasons: PE Allergies aspirin [ASA] Allergy (Unknown, Verified 02/04/24 16:39) FACIAL SWELLING ibuprofen [IBUPROFEN] Allergy (Unknown, Verified 02/04/24 16:39) HIVES Medication List - Last Reconciled 12/16/24 by Paul Ace MD cholecalciferol (vitamin D3) 25 mcg PO DAILY [id number] 1.2-5 % Apply twice a day topical; levothyroxine 125 mcg PO DAILY 90 days sumatriptan succinate (Imitrex) 50 mg orally once a day PRN; tretinoin 0.025% 1 appl topical BEDTIME Tobacco use date assessed: 09/04/23 Dental Screening Dental Screen Date: 09/04/23 HPI PE HPI Details Declined following up with the Surgical Oncology in which I have strongly recommended to follow-up. As for the thyroid TSH is mildly elevated but patient has declined increasing the dose for reason of diarrhea on a higher dose of thyroid medication. Discussed with the patient that I can order for the CAT scan but I do not know enough regarding gastric stromal tumors. And patient is aware. [facility] Medical History Arthritis of carpometacarpal (CMC) joint of left thumb Gastrointestinal stromal tumor GERD (gastroesophageal reflux disease) Irritable bowel syndrome Migraine Vitiligo Surgical History History of cataract surgery History of total abdominal hysterectomy Family History Father Diabetes Hypertension CVD (cardiovascular disease) Myocardial infarction Mother Hypertension Diabetes Brother Myocardial infarction Social History Housing: House Alcohol intake: never Patient Tobacco Use Status: Never used Tobacco e-Cigarette/Vaping Use: Never Used Second Hand Smoke Exposure: No Current occupational status: employed Current occupation: lab employee / left hand Cognitive needs: No Hearing needs: No Vision needs: Yes Questionnaire PHQ-9 Over the last 2 weeks, how often have you been bothered by any of the following problems? 1. Little interest or pleasure in doing things: not at all 2. Feeling down, depressed, or hopeless: not at all 3. Trouble falling or staying asleep, or sleeping too much: not at all 4. Feeling tired or having little energy: not at all 5. Poor appetite or overeating: not at all 6. Feeling bad about yourself - or that you are a failure or have let yourself or your family down: not at all 7. Trouble concentrating on things, such as reading the newspaper or watching television: not at all 8. Moving or speaking so slowly that other people could have noticed. Or the opposite - being so fidgety or restless that you have been moving around a lot more than usual: not at all 9. Thoughts that you would be better off or of hurting yourself in some way: not at all Total score: 0 Depression Screening Interpretation: Negative Depression Screening Done: Yes 22120 - PHQ-9 Billing: Yes Source: Developed by Drs. Eduardo Alberto, Pau Epps, Cosme Velasco and colleagues, with an educational anneliese from [email or web address]. Thrive Questionnaire Date Thrive assessed: 12/09/24 I am a: Patient What is your living situation today?: I have a steady place to live Within the past 12 months, did the food you bought not last and you didn't have the money to get more?: Never true Within the past 12 months, did you worry whether your food would run out before you got money to buy more?: Never true Do you have trouble paying for medicines?: No Do you have trouble getting transportation to medical appointments?: No Do you have trouble paying your heating and electricity bill?: No Do you have trouble taking care of your child, family member or friend?: No Do you have trouble with day-to-day activities such as bathing, preparing meals, shopping, managing finances, etc.?: No Are you currently unemployed and looking for a job?: No Are you interested in more education?: No Please select the resources that you would like help with: None Currently or been in a relationship where the following occur: I choose not to answer THRIVE Score: 0 AUDIT C Alcohol Use Questionnaire (AUDIT-C) 1. How often do you have a drink containing alcohol?: Never 3. How often do you have six or more drinks on one occasion?: Never Total Score: 0 GERARD-7 AMB Questionnaire GERARD-7 Date GERARD - 7 assessed: 12/16/24 Feeling nervous, anxious, or on edge: 0 = Not at all Not being able to stop or control worryin = Not at all Worrying too much about different things: 1 = Several days Trouble relaxin = Not at all Being so restless that it is hard to sit still: 0 = Not at all Becoming easily annoyed or irritable: 0 = Not at all Feeling afraid as if something awful might happen: 0 = Not at all Total GERARD-7 score (0-4 normal; 5-9 mild; 10-14 moderate; 15-21 severe): 1 Source: Developed by Drs. Edaurdo Alberto, Pau Epps, Cosme Velasco and colleagues, with an educational anneliese from [email or web address]. GERARD-7 Assessment Billing GERARD-7 Assessment Tool: GERARD-7 Assessment 40548 Review of Systems Const Denies poor appetite and Denies weakness Eyes Denies no additional complaints ENT Reports Normal hearing present, Denies dizziness, Denies nasal congestion, Denies tinnitus and Denies sore throat Card Denies chest pain, Denies syncope, Denies rapid heart rate and Denies dyspnea Resp Denies cough and Denies dyspnea GI Denies change in stool character, Reports constipation, Denies diarrhea, Denies nausea and Denies vomiting Denies urinary frequency, Denies difficulty voiding and Denies dysuria Neuro Reports Normal hearing present, Denies confusion, Denies dizziness, Denies syncope and Denies weakness Psych Denies confusion Physical exam (Primary Care) Vital Signs: Last Vital Signs Temp 97.0 F 12/16/24 16:39 Pulse 80 12/16/24 16:39 BP 144/80 H 12/16/24 16:39 Pulse Ox 97 12/16/24 16:39 Oxygen Delivery Method Room Air 12/16/24 16:39 BMI result Body Mass Index 25.8 Tobacco/Smoking Status: Tobacco use Status Tobacco use date assessed 09/04/23 12/16/24 16:45 Patient Tobacco Use Status Never used Tobacco 12/16/24 16:45 e-Cigarette/Vaping Use Never Used 12/16/24 16:45 PHQ-9: PHQ-9 Score PHQ-9: Total score 0 12/16/24 17:50 Depression Screening Interpretation: Negative Thrive Assessment: Date of Thrive Assessment Date Thrive assessed 12/09/24 12/16/24 16:45 Currently or been in a relationship where the following occur: I choose not to answer Const General: No confusion Orientation/consciousness: No confusion HENMT Head: Yes normocephalic Ears: external ears normal and TM's normal bilaterally Face and sinus: Yes normal facial exam Mouth: moist mucous membranes Throat: Yes tonsils normal Eyes Conjunctivae: conjunctivae normal Pupils: Equal, round and reactive pupils present and Pupil accommodation reflex normal Direct Ophthalmoscopy: normal light reflex Neck Neck: No lymphadenopathy Thyroid: Thyroid normal Chest Chest palpation & inspection: normal inspection of the chest Resp Effort & Inspection: normal respiratory effort and no audible wheezes Auscultation: clear to auscultation bilaterally, no crackles, no wheezes and lung sounds not diminished Cardio Rate: regular rate Rhythm: regular rhythm Peripheral pulses: radial pulses present and dorsalis pedis present GI Palpation (GI): no masses Auscultation: normal bowel sounds and normoactive bowel sounds Rectal Exam - Female: deferred Skin General skin exam: no rashes or lesions noted Rashes: no rashes Neuro General: No confusion Cranial nerves: Yes Equal, round and reactive pupils present and Yes Normal hearing present Cognition (Neuro): normal cognition Gait exam (Neuro): Normal gait present Motor exam (neuro): 5/5 motor strength present throughout Deep tendon reflexes (DTR's): Right brachioradialis reflex intensity grade: 2+, Left brachioradialis reflex intensity grade: 2+, Right patellar reflex intensity grade: 2+ and Left patellar reflex intensity grade: 2+ Extrem General: No edema Immunizations pneumoc 20-luisa conj-dip cr(PF) 0.5 mL IM syringe Performing Provider: Paul Ace MD [place] [facility] [place] [facility] Administered by: DALJIT Schmitt on 12/16/24 17:50 Dose Route Admin Location Dispensed Lot Number Expiration Date [facility] Heel Dipper 0.5 mL IM Left Deltoid 0.5 mL [id number] 08/27/25 WYETH/PFIZER VIS Given Date VIS Provided VIS Publication Date 12/16/24 Single Vaccine 22 Eligibility Eligibility Date Funding Source Not [facility] Eligible 12/16/24 Private Coding Level of Care Code Est Pt Prev Care 40-64y(35842) Diagnoses Annual physical exam Z00.00 S/P partial gastrectomy Z90.3 Gastroesophageal reflux disease without esophagitis K21.9 Esophagitis presence: without esophagitis Acquired hypothyroidism E03.9 Hypothyroidism type: acquired Hypercholesterolemia E78.00 Additional Codes GERARD-7 Assessment Billing - GERARD-7 Assessment Tool: GERARD-7 Assessment 51034 ([id number]) PHQ-9 - 23228 - PHQ-9 Billing: Yes ([id number]) Assessment & Plan Assessment & Plan (1) Annual physical exam: Code(s): Z00.00 - Encounter for general adult medical examination without abnormal findings Category: Medical Plan: Patient is advised to eat healthy, keep well hydrated, keep active and have adequate sleep. 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 Code(s): Z90.3 - Acquired absence of stomach [part of] Category: Surgical Plan: Continue to follow-up with Gastroenterology (3) GERD (gastroesophageal reflux disease): Code(s): K21.9 - Gastro-esophageal reflux disease without esophagitis Category: Medical Qualifiers: Esophagitis presence: without esophagitis Qualified Code(s): K21.9 - Gastro-esophageal reflux disease without esophagitis Plan: Avoid the foods that causes that usually spicy foods, tomato products, juices, coffee, soda and foods that your sensitive to. After eating do not lie down, allow 3-4 hours before in lie down. And keep the head of bed above 30 degrees to avoid the acid from going up. (4) Hypothyroidism: Code(s): E03.9 - Hypothyroidism, unspecified Category: Medical Qualifiers: Hypothyroidism type: acquired Qualified Code(s): E03.9 - Hypothyroidism, unspecified Plan: Continue with thyroid medication but will need to get retesting (5) Hypercholesterolemia: Code(s): E78.00 - Pure hypercholesterolemia, unspecified Category: Medical Plan: Avoid fried foods, chicken skin, eggs, butter margarine, pastries and meat. Be it pork or beef they have a lot of cholesterol LDL goal of less than 130 and triglyceride of less than 150 Plan History of Present Illness The patient is a 63-year-old female presenting for a physical examination and follow-up on her chronic conditions. Her medical history is notable for hypothyroidism, gastrointestinal stromal tumor with a resection in 2020, GERD, irritable bowel syndrome, vitiligo, and migraines. Her recent laboratory assessments indicate elevated TSH, and dietary factors are contributing to hypercholesterolemia, with an LDL level of 136. She maintains a busy lifestyle, balancing work and care for her grandson, which affects her dietary and sleep habits. There are no new medical conditions since her last examination. Health Maintenance - Cholesterol management discussion, with an emphasis on ideal LDL levels < 130 and triglyceride levels < 150. - Monitoring and retesting for thyroid levels discussed, given current TSH elevation. - Blood work reviewed from November 2024 indicating no anemia, normal renal function and electrolytes, and good liver function. - Recommended colonoscopy is not due yet as the last one was in April 2022. - Mammogram is currently due; last mammogram was prior to 2022. - Immunizations reviewed and noted that a pneumonia vaccine was recommended, with awareness of flu and shingles vaccination previously discussed. Social History - Employed in [employer], with irregular hours affecting sleep and dietary habits. - Provides care for a grandson, further impacting her routine. - No alcohol, tobacco, or recreational drug use reported. - Reports consuming eggs regularly for breakfast and low water intake due to a busy schedule. - Difficulties in dietary balance highlighted by consuming only one meal later in the day and feeling full after limited fluid intake. Review of Systems - Constitutional: Denies fatigue, endorses adequate general feeling. - Eyes: Denies current vision changes, left cataract followed up on. - Ears/Nose/Throat: Denies auditory or throat issues, no sinus problems. - Cardiovascular: Denies chest pain or hypertension but reports family history of heart disease. - Gastrointestinal: Denies heartburn but reports chronic constipation; occasional use of MiraLAX. - Genitourinary: Denies urinary discomfort, burning, or altered frequency; no nighttime frequency noted. - Musculoskeletal: Denies arthralgia, reports no new muscular symptoms. - Neurological: Denies new diagnoses, migraines stable, reports no recent episodes. - Dermatological: Reports vitiligo, no new skin issues. - Sleep: Reports less than four hours nightly sleep affecting general health. Physical Exam General: Cooperative, healthy appearing, comfortable, no acute distress and well developed Orientation: Patient oriented x3 Limitations: No limitations Head: Normal to inspection Ears: Hearing grossly normal bilaterally Nose: Normal external nose present Face and sinus: Normal facial exam Eyes: Appearance normal, both eyes and all related structures Neck: Normal visual inspection and Yes full ROM Respiratory: Normal respiratory effort and able to speak in complete sentences. Clear to auscultation bilaterally Cardiovascular: Regular rate and rhythm. Normal S1 and S2 GI: Normal to inspection. Soft to palpation and nontender Skin: No rashes or lesions noted Neuro: Patient oriented x3 Extremities: Normal to inspection Results - Labs: Blood count is normal; no anemia, platelets within normal limits. Cholesterol levels: Total cholesterol at 219 mg/dL, LDL at 136 mg/dL. TSH at 5.19; other metabolic panels including electrolytes, renal, and liver function tests within normal ranges. Plan We will continue to monitor thyroid function as TSH is slightly elevated with plans to retest in three months. Dietary changes were advised to reduce LDL cholesterol levels, with emphasis on decreasing egg yolk consumption. The current GERD and irritable bowel management strategies remain unchanged. She is advised to continue using MiraLAX for constipation as necessary. The pneumonia vaccine was recommended in context to her oncological history. The patient was informed that her routine mammogram is due. Medication fulfillment logistics were updated for convenience. Patient was informed and verbally consented to the use of an ambient scribe for clinic note documentation during this visit. Discussion Notes I discussed with the patient the management of her elevated TSH and cholesterol, highlighting the potential for dietary impact on LDL levels. We agreed to observe thyroid levels before altering medication due to past adverse effects. Preventive care measures, including pneumonia vaccination, were reviewed with its importance detailed concerning her surgical oncology history. We also talked about updating pharmacological prescriptions to a preferred located pharmacy to ease accessibility. The patient will continue with MiraLAX as needed for constipation management, and her mammogram is due now. Patient Instructions - Monitor thyroid levels; retest TSH in three months. - Adjust diet to reduce cholesterol intake, focusing on decreasing egg yolk consumption. - Use MiraLAX as needed for constipation. - Schedule a mammogram as it is due. - Get the pneumonia vaccine as discussed. - Continuously monitor blood pressure at home. - Follow up with any concerns about family cardiovascular risks and address dietary habits accordingly. Orders: Orders CT abdomen w IV con Today C49.A0 - Gastrointestinal stromal tumor, unspecified site Pneumococcal 20 Immunization Today Z23 - Encounter for immunization Thyroid Stimulating Hormone 3 Months E03.9 - Hypothyroidism, unspecified Free T4 (Free Thyroxine) 3 Months E03.9 - Hypothyroidism, unspecified Creatinine Today C49.A0 - Gastrointestinal stromal tumor, unspecified site Blood Urea Nitrogen Today C49.A0 - Gastrointestinal stromal tumor, unspecified site Medications: Refilled levothyroxine 125 mcg PO DAILY 90 tabs 1RF 90 days E03.9 - Hypothyroidism, unspecified
== END 2024-12-16 17:48 | disposition home or self-care (01) ==
LOC: HO.HMCH 16:04
PROVIDERS: PCP Internal Medicine; Visit Provider Internal Medicine
DX: Z00.00 Encounter for general adult medical examination without abnormal findings (principal); Z90.3 Acquired absence of stomach [part of]; K21.9 Gastro-esophageal reflux disease without esophagitis; E03.9 Hypothyroidism, unspecified; E78.00 Pure hypercholesterolemia, unspecified; Z23 Encounter for immunization

== ENCOUNTER → 2024-12-16 16:03 | Outpatient (BNVA) | payer OTHER, SELFPAY | PROVIDERS: PCP Internal Medicine; Visit Provider Internal Medicine | DX: Z00.00 Encounter for general adult medical examination without abnormal findings (principal); Z23 Encounter for immunization; K21.9 Gastro-esophageal reflux disease without esophagitis; E03.9 Hypothyroidism, unspecified; E78.00 Pure hypercholesterolemia, unspecified; Z90.3 Acquired absence of stomach [part of] | CPT/HCPCS: 90471; 90677; 96127 ==